=== PATIENT | female | born 1945 | race Caucasian/White ===

== ENCOUNTER → 2021-11-22 | Day surgery (SDC) | payer MEDICARE, BC ==
[~2021-11-22] MED LIST: AMITRIPTYLINE H25 MG PO; BACLOFEN10 MG PO; BUPIVACAINE HCL 0.5% INJ 30 ML VIAL INJ ONE; DOXYCYCLINE HY100 MG PO; FENTANYL CITRATE/PF 100MCG/2 ML INJ ONE; FLONASE ALLERG9.9 ML INH; FOLIC ACID0.8 MG PO; HYDROCODONE PO; IOPAMIDOL 200 MG/ML 20 ML VIAL IT ONE; LEVOTHYROXINE50 MCG PO; LIDOCAINE HCL 1% LOCAL INJ 20 ML VIAL ONE; LIDOCAINE HCL 2% LOCAL INJ 5 ML SDV VIAL INJ ONE; METHOTREXATE2.5 MG PO; METOPROLOL PO; MIDAZOLAM HCL 2 MG/2 ML VIAL ONE; OLMESARTAN HCTZ PO; POVIDONE IODINE 0.05% 0.05 % ML PO ONE; PREDNISONE10 MG PO; PROPOFOL IV EMULSION 10 MG/ML 20 ML VIAL ONE; PROTONIX20 MG PO; TRIAMCINOLONE ACET 40 MG/ML VIAL ONE; ZYRTEC10 M3 PO
[2021-11-22 10:25] VITALS: BP 122/77
== END | disposition home or self-care (01) ==
LOC: OR 08:31
PROVIDERS: ATTEND Specialist
DX: M16.11 Unilateral primary osteoarthritis, right hip (principal); M06.9 Rheumatoid arthritis, unspecified; M41.9 Scoliosis, unspecified; M47.816 Spondylosis without myelopathy or radiculopathy, lumbar region; K21.9 Gastro-esophageal reflux disease without esophagitis; I11.0 Hypertensive heart disease with heart failure; I50.9 Heart failure, unspecified; Z20.822 Contact with and (suspected) exposure to COVID-19; Z88.8 Allergy status to other drugs, medicaments and biological substances; Z88.2 Allergy status to sulfonamides; Z91.048 Other nonmedicinal substance allergy status; Z79.899 Other long term (current) drug therapy
CPT/HCPCS: 20610; 77002; J2001; J2250; J2704; J3010; J3301; Q9967; U0002